=== PATIENT | male | born 1940 | race Caucasian/White ===

== ENCOUNTER 2017-02-08 12:31 | Inpatient (IN) | payer MEDICARE, OTHER ==
[~2017-02-08] VITALS: Ht 188 cm; Wt 78.3 kg
[2017-02-08] MEDS ORDERED: VARE.5 PO (13:05)
[2017-02-08] MEDS ORDERED: NAPR220T95 PO (13:05)
[2017-02-15] VITALS (8 sets, daily range): BP systolic 124–175; BP diastolic 57–97; PULSE 72–95; RESP 16–20; TEMP 97.7–98.4; O2SAT 94–100
[2017-02-15] MEDS ORDERED: VARE1 PO (06:42)
[2017-02-15] MEDS ORDERED: GELFOAM SIZE 100 ONE (06:46)
[2017-02-15] MEDS ORDERED: THROMBIN (TOPICAL) 5,000 UNIT VIAL ONE (06:47)
[2017-02-15] MEDS ORDERED: HEPARIN SODIUM - SQ 10,000 UNITS/ML VIAL ONE (06:47)
[2017-02-15] MEDS ORDERED: HEPARIN SODIUM - IV 10,000 UNITS/10 ML VIAL ONE (06:49)
--- NOTE | 2017-02-15 07:04 | PD.VS.PN ---
Pre-operative Note Pre-operative diagnosis: AAA Planned procedure: EVAR Interval History: Pt has been feeling well since I saw him in clinic. Specifically, he has had no F/C/N/V or chest pain. He is in his usual state of health and ready for surgery. Labs: Hct 54 plt 262 creatinine 1.0 Blood: T&S Imaging: CXR: mild COPD changes, no acute process Orders: NPO Ancef 2g IV OCTOR Post-operative destination: PACU, then CIC Operative site marked: No (B groins so not relevant) Consent: Informed consent has been obtained from Anderson Ashraf Jr. I have explained the procedure in detail and discussed the risks, benefits, and potential complications. All questions have been answered. Patient contact information: [phone] Ramone Guerra MD Feb 15, 2017 07:03
[2017-02-15] MEDS ORDERED: ceFAZolin 2 GM PREMIX 50 ML ONE (07:21)
[2017-02-15] MEDS ORDERED: MIDAZOLAM HCL 2 MG/2 ML VIAL ONE (07:22)
[2017-02-15] MEDS ORDERED: DEXAMETHASONE SOD PHOS 4 MG/ML VIAL ONE (07:22)
--- NOTE | 2017-02-15 08:57 | HHI.PR ---
cc: Hannah Madison MD Immediate Post Op Note Procedure Date: Feb 15, 2017 Pre Op Diagnosis: AAA Post Op Diagnosis: AAA Surgeon: Ramone Guerra Hardware Developer(s): Mike Guillaume Procedure: EVAR B LINE CREWMAN Perclose Findings: successful repair of AAA Good perfusion of B renal arteries and B hypogastric arteries Additional Information: + B LE signals Complications: none Specimen(s) removed: none Estimated blood loss: 100 mL Anesthesia: General Drains: None Fluids: 1500 mL IVF Patient to: PACU Patient Condition: Good Implant/Devices: SEE IMPLANT LOG (if applicable) Date/Time of Procedure: SEE SURGICAL CARE RECORD Ramone Guerra MD Feb 15, 2017 08:57
[2017-02-15] MEDS ORDERED: fentaNYL CITRATE 250 MCG/5 ML AMP ONE (09:56)
[2017-02-15] MEDS: LACTATED RINGER'S 1000 ML INJ 1,000 ML IV SCH ×2 (10:00→21:09)
[2017-02-15] MEDS ORDERED: *morphine SULFATE 8 MG/ML PERIprocedure ONLY ONE (10:05)
[2017-02-15] MEDS ORDERED: PILL SPLITTER OTHER PRN (10:15)
[2017-02-15] MEDS ORDERED: DO NOT ADM ANY ANTICOAGULANT DRUGS PRN (10:15)
[2017-02-15] MEDS ORDERED: IOHEXOL 300 MG/ML 100 ML BTL (for Rad CT) OTHER ONE (11:09)
[2017-02-15] MEDS ORDERED: IOHEXOL 300 MG/ML 50 ML BTL (for RAD DIAG) OTHER ONE (11:09)
[2017-02-15] MEDS ORDERED: ONDANSETRON HCL 4 MG/2 ML VIAL IV PUSH ONE (11:12)
[2017-02-15] MEDS ORDERED: NEOSTIGMINE 3 MG/3 ML SYR IV ONE (11:12)
[2017-02-15] MEDS ORDERED: ePHEDrine/NS 25 MG/5 ML SYR IV ONE (11:12)
[2017-02-15] MEDS ORDERED: SODIUM CHLORID 0.9% 500 ML INJ 500 ML IV ONE (11:12)
[2017-02-15] MEDS ORDERED: PROPOFOL 200 MG/20 ML AMP IV ONE (11:12)
[2017-02-15] MEDS ORDERED: NORMOSOL R INJ 2,000 ML IV ONE (11:13)
[2017-02-15] MEDS ORDERED: PROTAMINE SULFATE 50 MG/5 ML VIAL IV ONE (11:20)
--- NOTE | 2017-02-15 13:50 | PD.VS.PN ---
Subjective POD #: 0 Procedure(s): EVAR Subjective/Hospital Course Resting comfortably, no complaints Objective Vitals/I&O Date Time Temp Pulse Resp B/P Pulse Ox O2 Delivery O2 Flow Rate FiO2 02/15/17 11:15 72 18 154/84 94 02/15/17 11:00 95 02/15/17 10:58 98.2 95 20 153/93 96 02/15/17 10:45 98.5 69 18 147/81 97 Nasal Cannula 2 02/15/17 10:30 70 18 144/80 97 Nasal Cannula 2 02/15/17 10:15 88 18 149/91 97 Nasal Cannula 2 02/15/17 10:00 94 18 163/94 94 Nasal Cannula 2 02/15/17 09:45 91 18 147/86 97 Nasal Cannula 2 02/15/17 09:30 93 18 135/80 96 Nasal Cannula 3 02/15/17 09:26 97.9 99 20 138/79 95 Nasal Cannula 3 02/15/17 06:50 98.0 78 20 175/97 100 02/15/17 02/15/17 02/15/17 07:00 15:00 23:00 Intake Total 2160 ml Output Total 950 ml Balance 1210 ml Exam: Groins soft, no hematomas or ecchymoses palpable pedal pulses Laboratory Laboratory Tests Test 02/15/17 02/15/17 06:40 06:45 Blood Type A POSITIVE A POSITIVE Antibody Screen NEGATIVE Crossmatch Leukocyte-Reduced Red Blood Cells Blood Bank Comment Assessment and Plan Plan Reg diet OOB TC and can sit up at 1500 (6h after procedure) Pereira out in a.m. Discharge Planning anticipate home POD#1 (tomorrow) Ramone Guerra MD Feb 15, 2017 13:50
[2017-02-15] MEDS: VARENICLINE 1 MG TAB PO SCH (18:31)
[2017-02-15] MEDS ORDERED: ATORVASTATIN 40 MG TAB PO SCH (21:00)
[2017-02-15] MEDS: METOPROLOL TARTRATE 25 MG TAB PO SCH (21:30)
[2017-02-15] MEDS: DOCUSATE SODIUM 100 MG CAP PO SCH (21:33)
[2017-02-16 03:00] VITALS: BP 148/82; PULSE 67; RESP 15; TEMP 98.2; O2SAT 96
[2017-02-16 04:17] LABS: HEMATOCRIT 45.1 % (39.0-51.0); MEAN CELL VOLUME 97.4 FL (80.0-100.0); MEAN CORPUSCULAR HEMOGLOBIN 33.6 PG (27.0-34.0); MEAN CORPUSCULAR HGB CONC 34.5 % (32.0-36.0); PLATELET COUNT 207 TH/MM3 (150-450); RED BLOOD COUNT 4.63 MIL/MM3 (4.50-5.90); RED CELL DISTRIBUTION WIDTH 13.6 % (11.6-17.2); REVIEW FLAG FINAL; WHITE BLOOD COUNT 16.6 TH/MM3 (4.0-11.0)
[2017-02-16 04:45] LABS: BICARBONATE 30.6 MEQ/L (21.0-32.0); POTASSIUM 4.3 MEQ/L (3.5-5.1)
[2017-02-16 07:00] VITALS: PULSE 66
[2017-02-16 07:55] VITALS: BP 140/89; PULSE 88; RESP 18; TEMP 98.1; O2SAT 96
[2017-02-16] MEDS: ENOXAPARIN SODIUM 30 MG/0.3 ML SYRINGE SQ SCH ×2 (08:00→08:11)
[2017-02-16] MEDS: DOCUSATE SODIUM 100 MG CAP PO SCH (08:11)
[2017-02-16] MEDS: METOPROLOL TARTRATE 25 MG TAB PO SCH (08:11)
[2017-02-16] MEDS: VARENICLINE 1 MG TAB PO SCH (08:11)
--- NOTE | 2017-02-16 08:25 | PD.VS.PN ---
Subjective POD #: 1 Procedure(s): EVAR Subjective/Hospital Course Doing well, no complaints Tolerated dinner and breakfast + void after Pereira out No pain Objective Vitals/I&O Date Time Temp Pulse Resp B/P Pulse Ox O2 Delivery O2 Flow Rate FiO2 02/16/17 07:55 98.1 88 18 140/89 96 02/16/17 07:00 66 02/16/17 03:00 98.2 67 15 148/82 96 02/15/17 23:39 72 02/15/17 23:39 98.2 82 16 124/74 96 02/15/17 19:24 98.3 73 18 131/57 96 02/15/17 19:00 73 02/15/17 15:00 97.7 94 20 156/84 96 02/15/17 15:00 94 02/15/17 11:15 72 18 154/84 94 02/15/17 11:00 95 02/15/17 10:58 98.2 95 20 153/93 96 02/15/17 10:45 98.5 69 18 147/81 97 Nasal Cannula 2 02/15/17 10:30 70 18 144/80 97 Nasal Cannula 2 02/15/17 10:15 88 18 149/91 97 Nasal Cannula 2 02/15/17 10:00 94 18 163/94 94 Nasal Cannula 2 02/15/17 09:45 91 18 147/86 97 Nasal Cannula 2 02/15/17 09:30 93 18 135/80 96 Nasal Cannula 3 02/15/17 09:26 97.9 99 20 138/79 95 Nasal Cannula 3 Exam: groins ok without hematoma Palpable femoral pulses Laboratory Laboratory Tests Test 02/16/17 03:57 White Blood Count 16.6 Red Blood Count 4.63 Hemoglobin 15.6 Hematocrit 45.1 Mean Corpuscular Volume 97.4 Mean Corpuscular Hemoglobin 33.6 Mean Corpuscular Hemoglobin 34.5 Concent Red Cell Distribution Width 13.6 Platelet Count 207 Mean Platelet Volume 7.4 Sodium Level 139 Potassium Level 4.3 Chloride Level 101 Carbon Dioxide Level 30.6 Anion Gap 7 Blood Urea Nitrogen 13 Creatinine 0.98 Estimat Glomerular Filtration 75 Rate Random Glucose 98 Calcium Level 8.7 Assessment and Plan Plan OOB and ambulate ad sneha D/C today w/ RTC 1m with CTA post-op EVAR (A/P) Discharge Planning today Feezor,Ramone J MD Feb 16, 2017 08:25
[2017-02-16] MEDS ORDERED: ASPIRIN 325 MG TAB PO SCH (09:00)
[2017-02-16] MEDS ORDERED: PANTOPRAZOLE SOD 40 MG DELAYED RELEASE TAB PO SCH (09:00)
--- NOTE | 2017-02-16 09:01 | PD.VS.DC ---
Discharge Summary Admission Date: Feb 15, 2017 at 05:19 Discharge Date: Feb 16, 2017 Admission Diagnosis: (1) AAA (abdominal aortic aneurysm) Discharge Diagnosis: (1) AAA (abdominal aortic aneurysm) Status: Acute Brief History from admission Pt has a HX of a AAA Pt without abdominal/back pain Procedure(s): EVAR Significant Findings GENERAL: Alert and oriented, GCS15,NAD SKIN: Warm and dry. bilat groins soft CARDIOVASCULAR: RRR RESPIRATORY: Breath sounds equal bilaterally. No accessory muscle use. GASTROINTESTINAL: Abdomen soft, non-tender, nondistended. MUSCULOSKELETAL: No cyanosis, or edema. Laboratory Tests Test 02/16/17 03:57 White Blood Count 16.6 TH/MM3 (4.0-11.0) Estimat Glomerular Filtration 75 ML/MIN (>89) Rate Hospital Course: Mr. Ashraf is a pleasant 76/M who has a PMH of AAA, he was admitted for AAA repair (EVAR) and has done well post operatively without complications Will F/U with pt in our OPC in 1M with a surveillance CTA prior to visit Allergies Coded Allergies Type Severity Reaction Last Updated Verified No Known Allergies 02/15/17 Yes // 06:00 18:00 06:00 18:00 06:00 18:00 Intake Total 4371 ml 1440 ml Output Total 1850 ml 1950 ml Balance 2521 ml -510 ml Intake Oral 1700 ml 1440 ml IV Total 721 ml Other 1950 ml Output Urine Total 1450 ml 1950 ml Estimated Blood Loss 400 ml # Bowel Movements 0 0 Laboratory Tests Test 02/15/17 02/15/17 02/16/17 06:40 06:45 03:57 Blood Type A POSITIVE A POSITIVE Antibody Screen NEGATIVE Crossmatch Leukocyte-Reduced Red Blood Cells Blood Bank Comment White Blood Count 16.6 TH/MM3 Red Blood Count 4.63 MIL/MM3 Hemoglobin 15.6 GM/DL Hematocrit 45.1 % Mean Corpuscular Volume 97.4 FL Mean Corpuscular Hemoglobin 33.6 PG Mean Corpuscular Hemoglobin 34.5 % Concent Red Cell Distribution Width 13.6 % Platelet Count 207 TH/MM3 Mean Platelet Volume 7.4 FL Sodium Level 139 MEQ/L Potassium Level 4.3 MEQ/L Chloride Level 101 MEQ/L Carbon Dioxide Level 30.6 MEQ/L Anion Gap 7 MEQ/L Blood Urea Nitrogen 13 MG/DL Creatinine 0.98 MG/DL Estimat Glomerular Filtration 75 ML/MIN Rate Random Glucose 98 MG/DL Calcium Level 8.7 MG/DL Procedure Category Date Status Time Red Blood Cells (Rbc) BBK 02/15/17 In Process 06:36 Type And Screen BBK 02/15/17 In Process 06:36 Gelfoam 100 Top MED 02/15/17 Complete (Gelfoam 100 Top) 06:46 Heparin Inj (Heparin MED 02/15/17 Complete Inj) 06:47 Thrombin Top Soln MED 02/15/17 Complete (Thrombin Top Soln) 06:47 Heparin Inj (Heparin MED 02/15/17 Complete Inj) 06:49 Cefazolin 2 Gm Premix MED 02/15/17 Complete (Ancef 2 Gm Premix 07:21 Midazolam Inj (Versed MED 02/15/17 Complete Inj) 07:22 Dexamethasone Inj MED 02/15/17 Complete (Decadron Inj) 07:22 Admit To Inpatient ADMITTING 02/15/17 Transmitted Code Status CODE 02/15/17 Transmitted 09:06 Vital Signs (Adult) JOAN 02/15/17 Complete 09:06 Podiatric Medicine Doctor / JOAN 02/15/17 In Process Telemetry 09:06 Activity Oob Ad Charla JOAN 02/15/17 In Process 16:00 Activity Bed Rest JOAN 02/15/17 In Process 09:06 Notify Parameters JOAN 02/15/17 In Process 09:06 ^ Precautions JOAN 02/15/17 In Process 09:06 Diet Heart Healthy DIET 02/15/17 Transmitted Breakfast Basic Metabolic Panel LAB 02/16/17 Complete (Bmp) 06:00 Cbc No Diff, Includes LAB 02/16/17 Complete Plts 06:00 Lactated Ringer's MED 02/15/17 Complete 1000 Ml Inj (Lr 1000 M 09:06 Aspirin (Aspirin) MED 02/16/17 In Process 09:00 Pantoprazole MED 02/16/17 In Process (Protonix) 09:00 Oxycodone (Roxicodone) MED 02/15/17 In Process 09:15 Docusate Sodium MED 02/15/17 In Process (Colace) 21:00 Scd Bilateral/Knee JOAN 02/15/17 Complete High 09:06 Inpatient ADMITTING 02/15/17 Transmitted Certification Varenicline (Chantix) MED 02/15/17 In Process 18:00 Metoprolol Tartrate MED 02/15/17 In Process (Lopressor) 21:00 Atorvastatin (Lipitor) MED 02/15/17 In Process 21:00 Fentanyl Inj MED 02/15/17 Complete (Fentanyl Inj) 09:56 *Morphine Inj MED 02/15/17 Complete (*Morphine Inj 10:05 Enoxaparin Inj MED 02/16/17 In Process (Lovenox Inj) 08:00 Pill Splitter (Pill MED 02/15/17 In Process Splitter) 10:15 [facility] [place] 02/15/17 In Process Information 10:15 [facility]17 Complete [facility]est[facility]17 Complete Pacu [facility]pc[facility] Holding [facility] 02/15/17 Complete Hourly Am Admit Pre Op Care [facility] 02/15/17 Complete Remove Urinary JOAN 02/16/17 In Process Catheter 04:00 Attending Discharge DISCHARGE 02/16/17 Transmitted Order Vital Signs Date Time Temp Pulse Resp B/P Pulse Ox O2 Delivery O2 Flow Rate FiO2 02/16/17 07:55 98.1 88 18 140/89 96 02/16/17 07:00 66 02/16/17 03:00 98.2 67 15 148/82 96 02/15/17 23:39 72 02/15/17 23:39 98.2 82 16 124/74 96 02/15/17 19:24 98.3 73 18 131/57 96 02/15/17 19:00 73 02/15/17 15:00 97.7 94 20 156/84 96 02/15/17 15:00 94 02/15/17 11:15 72 18 154/84 94 02/15/17 11:00 95 02/15/17 10:58 98.2 95 20 153/93 96 02/15/17 10:45 98.5 69 18 147/81 97 Nasal Cannula 2 02/15/17 10:30 70 18 144/80 97 Nasal Cannula 2 02/15/17 10:15 88 18 149/91 97 Nasal Cannula 2 02/15/17 10:00 94 18 163/94 94 Nasal Cannula 2 02/15/17 09:45 91 18 147/86 97 Nasal Cannula 2 02/15/17 09:30 93 18 135/80 96 Nasal Cannula 3 02/15/17 09:26 97.9 99 20 138/79 95 Nasal Cannula 3 02/15/17 06:50 98.0 78 20 175/97 100 Discharge Condition: Good Discharge Disposition: Discharge Home Discharge Instructions: Follow up in our OPC in 1M at scheduled appointment time Call the office to report any new onset back or abdominal pain Keep incisions to groin area clean and dry and open to air Donna BAKER [facility] [phone] Any questions or concerns: Call [facility] Heart [facility] Vascular Surgery at [facility] [phone] Donna Wright Feb 16, 2017 09:01
[2017-02-16] MEDS ORDERED: PERC5TAB12 PO (09:05)
--- NOTE | 2017-02-17 10:40 | MP ---
cc: ERON GUERRA MD DATE OF SURGERY 02/15/17 PREOPERATIVE DIAGNOSIS Abdominal aortic aneurysm POSTOPERATIVE DIAGNOSIS: Abdominal aortic aneurysm PLANNED PROCEDURE 1. Endovascular aortic aneurysm exclusion using a bifurcated device with two docking lens 2. Bilateral common femoral artery Perclose. SURGEON Damon Guerra MD WILD ANIMAL CARETAKER Madhu Guillaume. ANESTHESIA General INDICATIONS Mr. Ashraf is a 76 year old gentleman with a 5.5 cm abdominal aortic aneurysm that appears amenable to endovascular repair. He is taken to the operating room for this procedure. PROCEDURE IN DETAIL Informed consent is obtain from patient. He was taken to the operating room and placed supine on the operating room table. An appropriate time out was taken to identify the patient, the operative site and planned procedure. Administration of 1 gram of Ancef was initiated prior to skin incision and will be discontinued after a single preoperative dose. Everyone in the room agreed with the time-out and we proceeded. He was prepped from his nipple to his knees. Bilateral common femoral access was obtained with a 21 gauge micropuncture needle. This was exchanged using Seldinger technique through the micropuncture sheath. Angiogram confirmed common femoral artery access. 0.5 Storq wire was introduced through the micropuncture sheath. The micropuncture sheath was exchanged for a 5 Senegalese sheath which was used to dilate the skin and subcutaneous tract and arteriotomy. Two Perclose ProGlide sutures were inserted into each groin and tagged. These will be used later. A short 8 Senegalese sheath was placed in the right and a long 8 Seneg[place]e was placed on the left. The patient systemically heparinized throughout the remainder of the case the ACT was kept greater than 250. The Stroke wire was advanced up to the proximal descending thoracic aorta and over the right hand Storq wire a catheter was placed, exchange the stork for a Lunderquist and over the left hand stork wire a marker straight flush catheter was placed. A short 8 [place]e sheath was on the right was removed over the Lunderquist wire and Babita's dilator was used to dilate the skin and subcutaneous tract and arteriotomy. The main device which was Playtox Zenith 36 x 113 was introduced making certain to orient it appropriately. An angiogram was obtained which located the renal artery. These were marked on the screen and the graft was deployed down the contralateral gate in a sufficient position to maintain perfusion of the renal arteries. Interval angiography was performed and the top cath was released thereby releasing the suprarenal bare stent. A road runner wire was then placed through the flush catheter and the catheter was exchanged for a Cobra catheter and using the road runner and cobra we were able to navigate into the contralateral gate and angiogram confirmed we were in the contralateral gate and the Lunderquist wire was passed up the cobra catheter. A marker catheter was then placed and an oblique angiogram was performed to locate the left iliac bifurcation. The contralateral limb which was a 13 x 74 was inserted and deployed with sufficient overlap into the main body and maintenance of the hypogastric artery on the left hand side. The delivery system was then removed leaving the sheath in place. The remainder of the main body was deployed and the top cath was then recaptured. A olivier catheter was placed up the right hand side and an interval angiogram was obtained which located the right hypogastric artery. The right limb was then inserted and it was a 13 x 74 limb and this was inserted with division overlap and placed such that the distal aspect of the limb was proximal to the hypogastric artery. The deployment system was removed. The coated balloon was used to balloon the proximal and distal end as well as all the junctions and a completion angiogram was obtained. This showed maintenance of perfusion of both renal arteries, both hypogastric arteries and no type 1 or 3 endoleak. The wire, catheter and sheaths were removed. Perclose were tied down. Hemostasis was achieved in the groins. There were Doppler signals in the feet and heparin was reversed with Protamine. 4-0 Monocryl was placed in both groins and Dermabond was applied. Sponge, needle counts were correct at the end of the case. I was present and scrubbed for the entire procedure. MD CLAIRE Contreras/ /1:54 PM /10:20 AM [place]
== END 2017-02-16 09:45 | disposition home or self-care (01) | DRG 269 ==
LOC: HSDI 02-15 05:19 → HCVR 02-15 10:51
PROVIDERS: ADMIT Surgery; ATTEND Surgery
PROC: 04V03DZ Restriction of Abdominal Aorta with Intraluminal Device, Percutaneous Approach (ICD-10-PCS; principal; 2017-02-15 07:28)
DX: I71.4 Abdominal aortic aneurysm, without rupture (principal); I10 Essential (primary) hypertension; F17.210 Nicotine dependence, cigarettes, uncomplicated
CPT/HCPCS: 75630; 80048; 85027; 86850; 86900; 86901; 86920; C1725; C1769; C1874; J0690; J1100; J1644; J1650; J2250; J2270; J2405; J2710; J2720; J3010; J7040; J7120; Q9967

== ENCOUNTER → 2017-02-08 | Outpatient (CLI) | payer MEDICARE, OTHER ==
[~2017-02-08] MED LIST: CEPH500C3 PO; HYDR-3533 PO; NAPR220T95 PO; PERC5TAB12 PO; VARE.5 PO; VARE1 PO
[2017-02-08 13:27] LABS: HEMATOCRIT 53.9 % (39.0-51.0); MEAN CELL VOLUME 97.9 FL (80.0-100.0); MEAN CORPUSCULAR HEMOGLOBIN 33.4 PG (27.0-34.0); MEAN CORPUSCULAR HGB CONC 34.1 % (32.0-36.0); PLATELET COUNT 262 TH/MM3 (150-450); RED CELL DISTRIBUTION WIDTH 13.7 % (11.6-17.2); REVIEW FLAG FINAL; WHITE BLOOD COUNT 9.5 TH/MM3 (4.0-11.0)
[2017-02-08 13:28] LABS: BLOOD, URINE NEG (NEG); GLUCOSE,URINE NEG (NEG); KETONE, URINE NEG (NEG); MUCUS URINE FEW /lpf (OCC); NITRITE,URINE NEG (NEG); URINE COLOR LIGHT-YELLOW (YELLW/STRAW)
[2017-02-08 13:29] LABS: COMMENT (UR) CULT NOT INDICATED; CULTURE IF INDICATED CULT NOT INDICATED
[2017-02-08 13:35] LABS: PROTHROMBIN TIME - PATIENT 10.6 SEC (9.8-11.6)
[2017-02-08 14:01] LABS: POTASSIUM 4.4 MEQ/L (3.5-5.1)
--- NOTE | 2017-02-08 14:11 | RADRPT ---
EXAM DATE/TIME: 02/08/2017 13:40 [place] COMPARISON: No previous studies available for comparison. INDICATIONS : Evaluate for pneumonia, pneumothorax or communicable diseases. Pre-op for open- heart surgery. MEDICAL HISTORY : Smoker. SURGICAL HISTORY : None. ENCOUNTER: Initial ACUITY: 1 day PAIN SCORE: 0/10 LOCATION: Bilateral chest FINDINGS: The examination demonstrates mild COPD changes. The lungs are otherwise clear. The visualized bony st ructures are intact. CONCLUSION: 1. Mild COPD changes. Syd Del Valle MD on February 08, 2017 at 14:09 Board Certified Radiologist. This report was verified electronically.
--- NOTE | 2017-02-09 10:50 | EKG ---
Date Performed: 02/08/2017 Time Performed: 13:00:38 PTAGE: 76 years EKG: Normal Sinus rhythm POSSIBLE LEFT ATRIAL ENLARGEMENT SEPTAL MYOCARDIAL INFARCTION, PROBABLY OLD Compared to prior tracin g no significant change. ABNORMAL ECG NO PREVIOUS TRACING DOCTOR: Brittney Rasheed Interpretating Date/Time 02/09/2017 10:45:02
== END ==
LOC: CPRE 12:24
PROVIDERS: ATTEND Surgery
DX: Z01.810 Encounter for preprocedural cardiovascular examination (principal); Z01.812 Encounter for preprocedural laboratory examination; I71.4 Abdominal aortic aneurysm, without rupture; R94.31 Abnormal electrocardiogram [ECG] [EKG]
CPT/HCPCS: 36415; 71020; 80048; 81001; 85027; 85610; 93005